=== PATIENT | male | born 1965 | race Caucasian/White ===

== ENCOUNTER 2025-03-02 14:54 | Outpatient (AMB) | payer BC, SELFPAY ==
[2025-03-02 15:02] VITALS: BMI 45.3
--- NOTE | 2025-03-02 15:02 | A.PHYSOV ---
Vital Signs 03/02/25 15:02 Height 5 ft 7 in Weight 289 lb BMI 45.3 Intake Visit Reasons: NPV Marisela Ref- eval for back or hip injection Intake Note: Patient is a 59 year old male here for initial visit. Patient has been referred for lumbar radiculitis and right hip pain. Senior Management Consultant Required: No Allergies diclofenac Allergy (Unknown, Verified 03/02/25 15:03) Unknown HPI Comments Details: Mr. Pedraza is a 59-year-old male seen in consultation today for right-sided low back, hip and groin pain. Patient reports symptoms worsening over the past few months. Has a pain level today of 7/10 primarily in the right groin. His symptoms are worse with activity and improved with rest. He is unable to cross his right leg over his left. He denies any radiation into the thigh or lower extremity. He denies any weakness. Patient does have x-rays of his lumbar spine and hip reported below. He has been using Tylenol for pain. Patient did undergo intra-articular injection of his right hip under ultrasound guidance with Dr. Garcia, unfortunately that injection was helpful in the short term. I reviewed the referring provider's no prior to consultation. [facility] Surgical History H/O shoulder surgery History of neck surgery Pilonidal cyst History of carpal tunnel surgery Social History Alcohol intake: current Alcohol intake frequency: holidays/special occasions only Patient Tobacco Use Status: Former Tobacco user Review of Systems Narrative Low back pain, right hip pain, no incontinence, saddle anesthesia urinary retention. Physical Exam Exam Exam: Lumbar Spine: Examination of his lumbar spine, there is no visible swelling or deformity. He is tender to lower lumbar facets. He is otherwise nontender. Full range of motion of his lumbar spine. He does have an increase in pain with facet loading. Special Tests: Lhermittes sign was negative Heel Toe walk is normal Left straight leg raise: Negative Right straight leg raise: Negative Special tests Manuel test is negative Ganslen's test is negative SI Joint compression test negative Jenaro test negative Piriformis stretch is negative Lower Extremities: Limited range of motion of his right hip and external rotation and abduction. Otherwise full range of motion bilateral lower extremities. No calf pain or edema. Splinting for me splinting perforated Neuro: Sensation: Intact to lower extremities bilaterally Strength L2 (Psoas): 5/5 on the left and 5/5 on the right. L3 (Quads): 5/5 on the left and 5/5 on the right. L4 (Ant tibialis): 5/5 on the left and 5/5 on the right. L5 (EHL) 5/5 on the left and 5/5 on the right. S1 (Gastroc): 5/5 on the left and 5/5 on the right. DTR L4: (Patellar) Left 2 Right 2 S1: (Achilles) Left 2 Right 2 Babinski Downgoing No pathologic clonus. No involuntary movement. Vital Signs: BMI result Body Mass Index 45.3 Assessment & Plan Assessment & Plan (1) Back pain: Code(s): M54.9 - Dorsalgia, unspecified Category: Medical Qualifiers: Back pain location: low back pain Chronicity: chronic Back pain laterality: midline Sciatica presence: without sciatica Qualified Code(s): M54.50 - Low back pain, unspecified; G89.29 - Other chronic pain (2) Osteoarthritis of right hip: Code(s): M16.11 - Unilateral primary osteoarthritis, right hip Category: Medical Qualifiers: Osteoarthritis type: primary Qualified Code(s): M16.11 - Unilateral primary osteoarthritis, right hip Plan Mr Pedraza is a 59-year-old male seen in consultation today for chief complaint of right hip osteoarthritis. After my examination today, I do believe his hip is the primary concern. He is unable to cross his right leg over his left. He does have a significant amount of groin pain particularly with external rotation and abduction as well as stiffness. I recommend repeating the intra-articular injection of the right hip. It is only helpful in the short term we may consider a further evaluation with MRI of his right hip versus total hip replacement. We may also consider MRI of his lumbar spine but I do not believe that is necessary at this time. Patient will continue his home exercise plan and medications as prescribed. We will obtain prior authorization for his intra-articular hip injection. We discussed the benefits of proper nutrition and exercise to maintain a healthy body weight to improve longevity and function. We also discussed the benefits of proper lifting techniques, core strengthening and proper posture. Thank you for allowing me to participate in the care of your patient. Coding Level of Care Code New Pt Level 4 (02443) Diagnoses Chronic midline low back pain without sciatica M54.50; G89.29 Back pain location: low back pain Chronicity: chronic Back pain laterality: midline Sciatica presence: without sciatica Primary osteoarthritis of right hip M16.11 Osteoarthritis type: primary
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
--- OUTSIDE RECORDS SUMMARY | 2025-03-02 16:12 | XMS_ITS | Clinical Summary ---
Author Organization [facility] Address [address] [place] [address] Care Team Providers Care Special Education Itinerant Teacher Name Role Phone Unavailable Primary Care Provider Unavailabl e Immunizations Immunization Administration Dates Next Due Covid-19 Adenovirus Vaccine - Bernard 07/16/2020 Social History Tobacco Use Types Packs/Day Years Used Date Smoking Tobacco: Never Assessed Sex and Gender Information Value Date Recorded Sex Assigned at Not on file Legal Sex Male 3:23 PM EDT Gender Identity Not on file Sexual Orientation Not on file Plan of Treatment Health Maintenance Due Date Last Done Comments Hepatitis C Virus Screening 1966 HIV Screening 07/31/1979 DTaP/Tdap/Td Vaccines (1 - Tdap) 1985 Hepatitis B Vaccines (1 of 3 - 19+ 3-dose series) 07/10 Colonoscopy 07/31/2011 Pneumococcal Vaccines 50+ (1 of 1 - PCV) 2016 Zoster (Shingles) Vaccine (1 of 2) 2016 Influenza Vaccine 10/09/2024 COVID-19 Vaccine (2 - 2024- season) 11/09/202410/2020 RSV Vaccine 50 years and old er and Patients (1 - 1-dose 75+ series) [address] Insurance [address] [place] [address] [facility]
== END 2025-03-02 15:18 | disposition home or self-care (01) ==
LOC: HO.HPHYS 14:55
PROVIDERS: Visit Provider Physician Assistant
DX: M54.50 Low back pain, unspecified (principal); G89.29 Other chronic pain; M16.11 Unilateral primary osteoarthritis, right hip
CPT/HCPCS: 99204